=== PATIENT | female | born 1965 | race Caucasian/White ===

== ENCOUNTER 2022-09-19 08:46 | Outpatient (REF) | payer BC, SELFPAY ==
--- NOTE | ~2022-09-19 | MM_ITS ---
EXAMINATION: MM DIAGNOSTIC DIGITAL BREAST TOMOSYNTHESIS, BILATERAL US DIAGNOSTIC ULTRASOUND BREAST, LEFT CLINICAL INFORMATION: 56-year-old with palpable mass 12:00 left breast. The lifetime risk of breast cancer based on the Tyrer-Cuzick Model is 17%. COMPARISON: Outside mammography 07/04/2020, 04/23/2017, 05/24/2015 ([facility]). TECHNIQUE: Digital breast tomosynthesis is performed in both the craniocaudal and mediolateral oblique views along with computer-aided detection (CAD). Synthesized 2D images are generated from the tomosynthesis. Additional spot left ML view is obtained. Ultrasound left breast is targeted to the area of palpable concern. Additional imaging of the left axilla is also performed. Grayscale imaging and color Doppler are performed without and with harmonics. FINDINGS: Mammography: There are scattered areas of fibroglandular density (ACR BI-RADS breast composition Category b). The right breast is unremarkable. There is no interval mass or developing density. Neither breast shows abnormal calcifications. The visualized axilla on mammography and the skin contours are unremarkable. At site of clinical palpable concern upper left breast there is a macrolobulated mass measuring approximately 1.9 x 1.7 cm with fine surrounding spiculation. There is a 0.5 cm satellite lesion suggested just anterior to the palpable mass on the CC view. Ultrasound: Ultrasound left breast demonstrates a heterogeneous irregular hypoechoic solid mass 12:00 position 7 cm from nipple measuring 1.8 cm in greatest dimension. There is scattered internal color flow. There is an adjacent satellite lesion, likely corresponding to finding on mammography, adjacent to the mass measuring approximately 1.0 x 0.3 cm also with some associated color flow. Ultrasound left axilla demonstrates subtle lymphadenopathy with a 1.1 cm node showing no central hyperechoic hilus and an adjacent node with nodular cortical thickening up to 0.6 cm thickness. Management: Results are discussed with the patient at time of visit. Ultrasound-guided core biopsy of the left breast mass and left axillary node is recommended. Results and recommendations called to director of medical services (Melanie) for provider Paula Simmons on 09/19/2022. MM/MM tomosynthesis diagnostic BI IMPRESSION: Left: -Solid 1.9 cm mass 12:00 position corresponding to palpable concern. -Satellite nodule adjacent to primary lesion 12:00, 1.0 cm. -Left axillary adenopathy. Right: -There are no significant changes from prior study. ASSESSMENT: BI-RADS 4: Suspicious (subcategory 4C: High suspicion for malignancy) RECOMMENDATION: Ultrasound-guided core biopsy left breast mass and left axillary node. This patient's information was entered into a reminder system with a target due date for their next mammogram.
== END 2022-09-19 08:47 | disposition home or self-care (01) ==
LOC: HO.MAMMO 08:46
PROVIDERS: PCP Physician Assistant; Visit Provider Physician Assistant
DX: N63.25 Unspecified lump in the left breast, overlapping quadrants (principal)
CPT/HCPCS: 76642; 77062; 77066

== ENCOUNTER 2022-09-20 07:22 | Outpatient (REF) | payer BC, SELFPAY ==
--- NOTE | ~2022-09-20 | US_ITS ---
EXAMINATION: ULTRASOUND GUIDED CORE BIOPSY BREAST, LEFT ULTRASOUND GUIDED CORE BIOPSY AXILLA, LEFT POST PROCEDURE DIGITAL MAMMOGRAM, LEFT CLINICAL INFORMATION: Palpable mass left breast 12:00 position with probable axillary adenopathy. COMPARISON: Mammography and left breast ultrasound 09/19/2022, outside mammography 07/04/2020 ([facility]). FINDINGS: Proper informed consent is obtained from the patient after discussion of the procedure, potential risks and complications, and alternatives. Patient was given an opportunity for questions. The patient appeared to understand. The patient consented to the procedure and signed the consent form. LEFT BREAST: LOCATION: Posterior 12:00. GUIDANCE: Ultrasound-guided; aseptic technique. LESION: Macrolobulated mass 1.8 cm. APPROACH: Medial lateral. ANESTHESIA: 16 mL carbonated 1% lidocaine. DERMATOTOMY: Single skin sundar dermatotomy performed. NEEDLE: 14-gauge Achieve core biopsy device with 13.5-gauge co-axial guide needle. CORES: 5. CLIPS: HydroMARK; shape: butterfly. COMMENT: As noted on recent ultrasound, there is a small adjacent satellite nodule, approximately 1.5 cm from the sampled mass. A HydroMARK (cylinder shaped) clip was positioned at the satellite lesion to assist in bracketing at needle localization, if applicable. The satellite lesion is not sampled histologically as is close and likely similar entity. LEFT AXILLA: New anesthesia and biopsy supplies are used. LOCATION: Left axilla. GUIDANCE: Ultrasound-guided; aseptic technique. LESION: 1.1 cm node with no appreciable central hyperechoic hilus. APPROACH: Oblique caudal cranial. ANESTHESIA: 9 mL carbonated 1% lidocaine. DERMATOTOMY: A new skin sundar dermatotomy is performed to allow for the second site of biopsy. . NEEDLE: 16-gauge Temno core biopsy device with 11-gauge co-axial guide needle. CORES: 4. CLIP: HydroMARK; shape: open coil. POST PROCEDURE DIGITAL MAMMOGRAM: The post biopsy mammogram is performed in separate room using separate digital mammography equipment from the biopsy procedure. CC and ML x2 views are obtained. There are scattered areas of fibroglandular density (breast composition category: b). The clip markers are in position. No gross hematoma. The satellite lesion clip marker resides approximately 1.5 cm anterior to the mass sampled on CC view and approximately 1.6 cm caudal to the mass sampled on MLO view. The patient tolerated the procedure well. No immediate complications. Home instructions reviewed with the patient. Final pathology results are pending. Procedure results called to medical laboratory technicians (Kristen) for Dr. Coelho on 09/20/2022. US/US breast ndl core bio ea add IMPRESSION: -Status post ultrasound-guided core biopsy left breast and left axilla with clip placement. See comment. -Pathology pending. An addendum report will be issued by Dr. Fontanez. -Comment: A HydroMARK (cylinder shaped) clip was positioned at the satellite lesion to assist in bracketing at needle localization, if applicable. The satellite lesion is not sampled histologically as it resides close to the mass and is likely similar entity.
--- NOTE | ~2022-09-20 | US_ITS ---
EXAMINATION: ULTRASOUND GUIDED CORE BIOPSY BREAST, LEFT ULTRASOUND GUIDED CORE BIOPSY AXILLA, LEFT POST PROCEDURE DIGITAL MAMMOGRAM, LEFT CLINICAL INFORMATION: Palpable mass left breast 12:00 position with probable axillary adenopathy. COMPARISON: Mammography and left breast ultrasound 09/19/2022, outside mammography 07/04/2020 ([facility]). FINDINGS: Proper informed consent is obtained from the patient after discussion of the procedure, potential risks and complications, and alternatives. Patient was given an opportunity for questions. The patient appeared to understand. The patient consented to the procedure and signed the consent form. LEFT BREAST: LOCATION: Posterior 12:00. GUIDANCE: Ultrasound-guided; aseptic technique. LESION: Macrolobulated mass 1.8 cm. APPROACH: Medial lateral. ANESTHESIA: 16 mL carbonated 1% lidocaine. DERMATOTOMY: Single skin sundar dermatotomy performed. NEEDLE: 14-gauge Achieve core biopsy device with 13.5-gauge co-axial guide needle. CORES: 5. CLIPS: HydroMARK; shape: butterfly. COMMENT: As noted on recent ultrasound, there is a small adjacent satellite nodule, approximately 1.5 cm from the sampled mass. A HydroMARK (cylinder shaped) clip was positioned at the satellite lesion to assist in bracketing at needle localization, if applicable. The satellite lesion is not sampled histologically as is close and likely similar entity. LEFT AXILLA: New anesthesia and biopsy supplies are used. LOCATION: Left axilla. GUIDANCE: Ultrasound-guided; aseptic technique. LESION: 1.1 cm node with no appreciable central hyperechoic hilus. APPROACH: Oblique caudal cranial. ANESTHESIA: 9 mL carbonated 1% lidocaine. DERMATOTOMY: A new skin sundar dermatotomy is performed to allow for the second site of biopsy. . NEEDLE: 16-gauge Temno core biopsy device with 11-gauge co-axial guide needle. CORES: 4. CLIP: HydroMARK; shape: open coil. POST PROCEDURE DIGITAL MAMMOGRAM: The post biopsy mammogram is performed in separate room using separate digital mammography equipment from the biopsy procedure. CC and ML x2 views are obtained. There are scattered areas of fibroglandular density (breast composition category: b). The clip markers are in position. No gross hematoma. The satellite lesion clip marker resides approximately 1.5 cm anterior to the mass sampled on CC view and approximately 1.6 cm caudal to the mass sampled on MLO view. The patient tolerated the procedure well. No immediate complications. Home instructions reviewed with the patient. Final pathology results are pending. Procedure results called to back office medical assistant (Kristen) for Dr. Coelho on 09/20/2022. US/US breast ndl core biopsy LT IMPRESSION: -Status post ultrasound-guided core biopsy left breast and left axilla with clip placement. See comment. -Pathology pending. An addendum report will be issued by Dr. Fontanez. -Comment: A HydroMARK (cylinder shaped) clip was positioned at the satellite lesion to assist in bracketing at needle localization, if applicable. The satellite lesion is not sampled histologically as it resides close to the mass and is likely similar entity.
[2022-09-20] MEDS: Lidocaine HCl 1 % 20 ML VIAL 36 ML SUBCUT (10:06)
[2022-09-20] MEDS: Sodium Bicarbonate 8.4% 50 MEQ/50 ML VIAL SUBCUT (10:07)
== END 2022-09-20 07:23 | disposition home or self-care (01) ==
LOC: HO.MAMMO 07:22
PROVIDERS: Pathology Cytopathology; PCP Physician Assistant; Visit Provider Physician Assistant
DX: R92.8 Other abnormal and inconclusive findings on diagnostic imaging of breast (principal); N63.25 Unspecified lump in the left breast, overlapping quadrants
CPT/HCPCS: 19083; 19084; 36415; 77062; 77065; 88305; 88342; 88360; 88374; A4648

== ENCOUNTER → 2022-09-26 11:23 | Outpatient (BNVA) | payer BC, SELFPAY | PROVIDERS: PCP Physician Assistant; Visit Provider Surgery ==

== ENCOUNTER → 2022-09-27 11:32 | Outpatient (BNV) | payer BC, SELFPAY | PROVIDERS: PCP Physician Assistant; Visit Provider Internal Medicine | DX: C50.812 Malignant neoplasm of overlapping sites of left female breast (principal) | CPT/HCPCS: 99205; 99214 ==